=== PATIENT | male | born 1950 | race Caucasian/White ===

== ENCOUNTER 2020-08-31 06:42 | Outpatient (REF) | payer OTHER, SELFPAY ==
[2020-08-31 08:21] LABS: MANUAL DIFF FLAG NO
[2020-08-31 08:30] LABS: Basophils Absolute Auto 0.1 X10*3/uL (0.0-0.2); Basophils Percent Auto 0.7 % (0-2); Eosinophils Absolute Auto 0.2 X10*3/uL (0.0-0.4); Hematocrit 44.5 % (42-52); Hemoglobin 14.7 g/dl (14.0-18.0); Imm Gran Abs Auto 0.02 X10*3/uL (0.00-0.03); Imm Gran Pct Auto 0.3 % (0.0-0.4); Lymphocytes Absolute Auto 2.6 X10*3/uL (1.2-4.9); Lymphocytes Percent Auto 34.9 % (20-40); Mean Corpuscular Hemoglobin 31.1 pg (27.0-33.0); Mean Corpuscular Volume 94.3 fL (80-98); Mean Platelet Volume 9.5 fL (9.4-12.4); Monocytes Absolute Auto 0.6 X10*3/uL (0.1-1.2); Monocytes Percent Auto 8.5 % (2-11); Neutrophils Percent Auto 53.6 % (45-73); Platelet Count 262 X10*3/uL (160-400); Red Blood Count 4.72 X10*6/uL (4.60-5.80); Red Cell Distribution Width 11.9 % (11.0-16.0); White Blood Count 7.4 X10*3/uL (4.8-10.8)
[2020-08-31 09:03] LABS: Alanine Aminotransferase 14 U/L (0-40); Albumin Level 4.1 g/dL (3.5-5.0); Alkaline Phosphatase 68 U/L (39-117); Anion Gap 13 (12-20); Aspartate Amino Transferase 15 U/L (5-37); Bilirubin Total 0.2 mg/dL (0.0-1.0); Blood Urea Nitrogen 19 mg/dL (9-16); Calcium 9.6 mg/dL (8.4-10.2); Carbon Dioxide 24 mmol/L (22-29); Chloride 106 mmol/L (96-108); Cholesterol 166 mg/dL; Estimated Glomerular Filt Rate > 60; Glucose Fasting 162 mg/dL (60-99); HDL Cholesterol 36 mg/dL; LDL Cholesterol Calculated 103 mg/dl; Potassium 4.8 mmol/L (3.3-5.1); Sodium 138 mmol/L (135-145); Total Protein 6.8 g/dL (6.5-8.0); Triglycerides 136 mg/dL
[2020-08-31 09:11] LABS: Thyroid Stimulating Hormone 1.75 uIU/mL (0.32-4.0)
== END 2020-08-31 06:43 | disposition home or self-care (01) ==
LOC: HO.LAB 06:42
PROVIDERS: PCP Internal Medicine; Visit Provider Internal Medicine
DX: Z00.00 Encounter for general adult medical examination without abnormal findings (principal); E03.9 Hypothyroidism, unspecified; E11.9 Type 2 diabetes mellitus without complications
CPT/HCPCS: 36415; 80053; 80061; 84443; 85025

== ENCOUNTER 2021-02-15 11:40 | Outpatient (REF) | payer OTHER, SELFPAY ==
[2021-02-15 12:37] LABS: Estimated Average Glucose 131 mg/dL; Hemoglobin A1c % 6.2 %
[2021-02-15 12:43] LABS: Glucose Fasting 125 mg/dL (60-99)
[2021-02-21 02:26] LABS: Testosterone, Free 34.1 pg/mL (35.0-155.0); Testosterone, Total 242 ng/dL (250-1100)
== END 2021-02-15 11:41 | disposition home or self-care (01) ==
LOC: HO.LAB 11:40
PROVIDERS: PCP Internal Medicine; Visit Provider Internal Medicine
DX: E11.65 Type 2 diabetes mellitus with hyperglycemia (principal); N52.9 Male erectile dysfunction, unspecified
CPT/HCPCS: 36415; 82947; 83036; 84402; 84403

== ENCOUNTER 2023-02-05 08:44 | Outpatient (AMB) | payer MEDICARE, OTHER, SELFPAY ==
--- NOTE | 2023-02-05 08:45 | MHC.PC.OV ---
Vital Signs 02/05/23 08:46 Height 5 ft 6 in Weight 279 lb BMI 45.0 BP 130/70 Blood Pressure Location Lt brachial Position Sitting Pulse 92 Pulse Source Pulse Oximeter Pulse Oximetry (%) 97 Oxygen Delivery Method Room Air Intake Visit Reasons: Strained neck Intake Note: Patient is here today for strained neck radiates to neck and upper back area. OTC medication and exercises not helping Trolley Worker Required: No Audio Production Instructor: Not Required per policy Accompanied by: Self / Same As Patient Allergies No Known Allergies Allergy (Verified 02/05/23 08:46) Medication List - Last Reconciled 02/05/23 by Paolo Page MD epinephrine (EpiPen 2-Flakito) 0.3 mg (0.3 mL) IM Q4H PRN hydrochlorothiazide 12.5 mg PO DAILY lisinopril 20 mg PO DAILY meclizine 25 mg PO QID PRN simvastatin 20 mg PO BEDTIME tadalafil (Cialis) 20 mg PO DAILY PRN Tobacco use date assessed: 02/05/23 Fall risk assessment: No Falls in past year Last assessed Fall Risk: 02/05/23 Dental Screening Dental Screen Date: 02/05/23 Did you have a dental visit in the last 12 months?: Yes Did you have a dental problem in the last 6 months where you did not have access to dental care?: No Was dental information given to patient?: Patient has dentist HPI Strained neck HPI Details left and right neck pain and stiffness for a week; no injury [facility] Medical History (Updated 07/22/22 @ 13:45 by Paool Page MD) Gout Morbid obesity Hyperlipidemia Hypertension Surgical History History of knee replacement procedure of right knee Family History Mother No problems noted. Father No problems noted. Social History Housing: House Alcohol intake: current Alcohol intake frequency: holidays/special occasions only Patient Tobacco Use Status: Never used Tobacco e-Cigarette/Vaping Use: Never Used Second Hand Smoke Exposure: No service: No Current occupational status: retired Cognitive needs: No Hearing needs: Yes (hearing aide) Vision needs: Yes (Glasses) Questionnaire Thrive Questionnaire Date Thrive assessed: 07/22/22 KRISS-7 AMB Questionnaire KRISS-7 Date KRISS - 7 assessed: 07/22/22 Source: Developed by Drs. Luis E Hensley, Lori Meade, Vincent Gupta and colleagues, with an educational micheal from [employer]. Review of Systems Const Denies chills, Denies headache(s) and Denies weight loss ENT Denies headache(s) Card Denies chest pain, Denies syncope, Denies irregular heart rhythm and Denies dyspnea Resp Denies chest congestion, Denies cough and Denies dyspnea GI Denies abdominal pain, Denies change in stool character, Denies nausea and Denies vomiting Musc Denies deformity and Denies joint swelling Neuro Denies syncope and Denies headache(s) Physical exam (Primary Care) Vital Signs: Last Vital Signs Pulse 92 02/05/23 08:46 BP 130/70 02/05/23 08:46 Pulse Ox 97 02/05/23 08:46 Oxygen Delivery Method Room Air 02/05/23 08:46 BMI result Body Mass Index 45.0 Tobacco/Smoking Status: Tobacco use Status Tobacco use date assessed 02/05/23 02/05/23 08:52 Patient Tobacco Use Status Never used Tobacco 02/05/23 08:52 e-Cigarette/Vaping Use Never Used 02/05/23 08:52 Thrive Assessment: Date of Thrive Assessment Date Thrive assessed 07/22/22 02/05/23 08:52 Const General: cooperative, comfortable, no acute distress and alert Neck Neck: Yes no lymphadenopathy Thyroid: Thyroid normal Resp Effort & Inspection: normal respiratory effort Auscultation: clear to auscultation bilaterally Percussion: percussion normal Cardio Jugular venous distension: no JVD Palpation: normal PMI Rate: regular rate Rhythm: regular rhythm Heart sounds: S1 normal heart sound present and S2 normal heart sound present GI Inspection: Yes normal to inspection Palpation (GI): No hepatosplenomegaly present Skin General skin exam: no rashes or lesions noted Extrem General: Yes no clubbing, cyanosis or edema Office Procedures Flu Questionnaire Does the patient have a severe egg allergy?: No Does the patient have severe life threatening allergies?: No Does the patient have a fever or illness today?: No Has the patient ever had Guillain-Whitlash Syndrome?: No Has the patient ever had any past reaction to a flu shot?: No Immunizations flu vacc [id number] 6mos up(PF) 60 mcg(15 mcgx4)/0.5 mL IM syringe Performing Provider: Paolo Page MD Performing Location: [facility] Administered by: JOJO Rodney on 02/05/23 09:00 Dose Route Admin Location Dispensed Lot Number Expiration Date NDC Staff Genetic Counselor 0.5 mL IM Left Deltoid 0.5 mL [id number] 10/05/23 64086-085-74 [employer] VIS Given Date VIS Provided VIS Publication Date 02/05/23 Single Vaccine 20 Eligibility Eligibility Date Funding Source Not [facility] Eligible 02/05/23 Private Assessment and Plan Assessment & Plan (1) Neck pain: Code(s): M54.2 - Cervicalgia Plan: xr and rx Orders: Orders Influenza [id number] Immunization Today Z23 - Encounter for immunization XR cervical spine 2V Today M54.2 - Cervicalgia Medications: New naproxen (Naprosyn) 500 mg PO BID PRN 60 tabs 0RF pain flu vacc [id number] 6mos up(PF) 0.5 mL IM ONCE 0.5 mL 0RF Z23 - Encounter for immunization cyclobenzaprine 10 mg PO TID PRN 30 tabs 2RF muscle spasm Coding Level of Care Code Est Pt Level 3 (44380) Diagnoses Neck pain M54.2
[2023-02-05 08:46] VITALS: BP 130/70; PULSE 92; O2SAT 97; BMI 45.0
== END 2023-02-05 10:27 | disposition home or self-care (01) ==
PROVIDERS: PCP Internal Medicine; Visit Provider Internal Medicine
DX: Z23 Encounter for immunization (principal); M54.2 Cervicalgia
CPT/HCPCS: 90471; 90686; 99213

== ENCOUNTER 2023-02-05 09:09 | Outpatient (REF) | payer MEDICARE, OTHER, SELFPAY ==
--- NOTE | ~2023-02-05 | XR_ITS ---
EXAMINATION: XR CERVICAL SPINE CLINICAL INFORMATION: Cervicalgia COMPARISON: None available. TECHNIQUE: 7 views of the cervical spine FINDINGS: No acute visible fracture or dislocation. Grade 1 retrolisthesis of C5 on C6. Right neural foraminal narrowing greatest at C3-C4 and C4-C5. Multilevel degenerative changes with disc space narrowing and endplate sclerosis, osteophyte wrist and facet arthropathy. Visualized dens is intact. Lateral masses are symmetric. Vertebral body heights and disc spaces are maintained. Prevertebral soft tissue prominence greatest at C6, nonspecific. Posterior elements are intact. Paraspinal soft tissues are unremarkable. Visualized portions of the chest are unremarkable. XR/XR cervical spine 4V IMPRESSION: 1. No acute visible fracture or dislocation. 2. Grade 1 retrolisthesis of C5 on C6. 3. Right neural foraminal narrowing greatest at C3-C4 and C4-C5. 4. Multilevel degenerative changes. 5. Prevertebral soft tissue prominence greatest at C6, nonspecific.
== END 2023-02-05 09:10 | disposition home or self-care (01) ==
LOC: HO.XRAY 09:09
PROVIDERS: PCP Internal Medicine; Visit Provider Internal Medicine
DX: M54.2 Cervicalgia (principal)
CPT/HCPCS: 72050

== ENCOUNTER 2024-08-23 10:29 | Emergency (ER) | payer OTHER, SELFPAY ==
--- NOTE | ~2024-08-23 | CT_ITS ---
EXAMINATION: CT CERVICAL SPINE WITHOUT CONTRAST CLINICAL INFORMATION: Fall, head strike, neck pain. COMPARISON: None available. TECHNIQUE: Spiral CT imaging of the cervical spine performed in axial plane without contrast. Multiplanar reformatted images were constructed from the axial data set. This CT examination was performed using dose optimization techniques as appropriate, variously including the following: *Automated exposure control *Adjustment of mA and/or kV according to patient size (this includes techniques or standardized protocols for targeted exams where dose is matched to indication/reason for exam; i.e. extremities or head) *Use of iterative reconstruction technique FINDINGS: CORONAL ALIGNMENT: -Normal. SAGITTAL ALIGNMENT: -Minimal reversal of the normal lordosis. -No evidence of traumatic subluxation. -2 mm degenerative anterolisthesis C4 on C5, and 2 mm degenerative retrolisthesis C6 on C7. C1-C2 AND CRANIOCERVICAL JUNCTION: -Intact and aligned. There are degenerative changes of tingling into axial joint anteriorly. VERTEBRAL BODIES AND FACETS: -There are no fractures, compression deformities, traumatic subluxations, or suspicious bone lesions. -There are is normal facet alignment bilaterally with multilevel facet degenerative arthrosis. DISCS: -Moderate to severe disc degeneration present C5-6 and C6-7 with associated disc osteophytic spurs. -Moderate degeneration C3-4 and C4-5. CENTRAL CANAL: -No evidence of high-grade central canal narrowing or large disc herniation allowing for modality limitations. There is at least moderate canal stenosis present at C5-6 and possibly at C6-7. PREVERTEBRAL AND PARAVERTEBRAL SOFT TISSUES: -There are retropharyngeal courses of both carotid arteries. Moderate bilateral carotid bulb calcifications. -There is no prevertebral or paravertebral soft tissue edema or swelling. -There is an enlarged thyroid which extends to the sternal notch, with coarse calcifications bilaterally. No discrete dominant nodules seen by CT. LUNG APICES: -Imaged lung apices are clear allowing for motion artifact and expiratory state. CT/CT cervical spine wo IV con IMPRESSION: 1. No CT evidence of acute cervical spine fracture or injury. 2. Moderate degenerative spondylosis, most significant C5-6 and C6-7. Electronically signed by: Kvng Vallejo MD 08/23/2024 12:50 PM EDT
--- NOTE | ~2024-08-23 | CT_ITS ---
EXAMINATION: CT HEAD WITHOUT CONTRAST CLINICAL INFORMATION: Fall with posterior head strike. COMPARISON: None available. TECHNIQUE: Contiguous axial imaging was performed from the skull base to vertex without intravenous administration of contrast. This CT examination was performed using dose optimization techniques as appropriate, variously including the following: *Automated exposure control *Adjustment of mA and/or kV according to patient size (this includes techniques or standardized protocols for targeted exams where dose is matched to indication/reason for exam; i.e. extremities or head) *Use of iterative reconstruction technique FINDINGS: There is no evidence of intracranial hemorrhage or extra-axial fluid collection. There is no mass effect, or edema. No CT evidence of acute territorial infarct. Ventricles, sulci, and cisterns are normal in size and configuration for patient age. No hydrocephalus. No midline shift. Negative hyperdense MCA sign. Negative insular ribbon sign. Patchy periventricular and deep white matter hypoattenuation is consistent with mild small vessel ischemic changes. Normal pituitary. Mild atheromatous calcification of the bilateral carotid siphons and V4 segments vertebral arteries bilaterally. Globes and orbital contents image normally. There are bilateral lens replacements. No extracranial soft tissue abnormalities. The paranasal sinuses, mastoid air cells, and tympanic cavities are normally aerated. No suspicious bony abnormalities. There are no acute fractures evident. CT/CT head/brain wo IV con IMPRESSION: No acute intracranial abnormality. No fracture evident. Electronically signed by: Kvng Vallejo MD 08/23/2024 12:45 PM EDT
[2024-08-23 10:54] VITALS: BP 112/54; PULSE 77; RESP 18; TEMP 36.2; O2SAT 100; BMI 45.7
--- NOTE | 2024-08-23 11:19 | ED_ITS ---
HPI - Fall General Chief Complaint: Fall Stated Complaint: head inj Time Seen by Provider: 08/23/24 11:19 Source: patient and family () Mode of arrival: ambulatory Limitations: no limitations History of Present Illness ED Provider: KARO FIERRO PA-C HPI Narrative: 74-year-old male with pmhx significant for HTN, HLD, vertigo, gout presents to the ED today with his for evaluation s/p fall with posterior head strike 4 days ago. Patient states that he suffers from vertigo. He had a brief episode of room spinning sensation on Friday (consistent with his typical vertigo), causing him to fall backwards. He reports striking the back of his head on a wall. He did not lose consciousness. He is not on anticoagulation. Reports taking meclizine at that time with improvement. Since head strike, he reports constant headache and midline neck pain x 4 days. He has not trialed any dywu-neo-sceamzi analgesics for this. Also endorses nausea without vomiting, fatigue. No slurred speech. Placed in cervical collar on arrival d/t complaints of neck pain. Related Data Previous Rx's ?Medication ?Instructions ?Recorded epinephrine 0.3 mg/0.3 mL 0.3 mg (0.3 mL) IM Q4H PRN 08/02/22 injection, auto-injector (EpiPen anaphylaxis #2 ea 2-Flakito) cyclobenzaprine 10 mg tablet 10 mg PO TID PRN muscle spasm #30 02/05/23 tabs naproxen 500 mg tablet (Naprosyn) 500 mg PO BID PRN pain #60 tabs 02/05/23 meclizine 25 mg tablet 25 mg PO QID PRN dizziness #30 tabs 02/25/23 tadalafil 20 mg tablet (Cialis) 20 mg PO DAILY PRN sexual activity 05/19/23 #30 tabs hydrochlorothiazide 12.5 mg capsule 12.5 mg PO DAILY #90 caps 08/15/23 lisinopril 20 mg tablet 20 mg PO DAILY #90 tabs 08/15/23 simvastatin 20 mg tablet 20 mg PO BEDTIME #90 tabs 08/15/23 ondansetron 4 mg disintegrating 4 mg PO DAILY PRN nausea and 08/23/24 tablet vomiting 5 days #10 tabs Allergies Allergy/AdvReac Type Severity Reaction Status Date / Time shellfish derived [shellfish] Allergy Anaphylaxis Verified 08/23/24 11:06 Review of Systems Review of Systems: Yes all other systems are reviewed and are negative [facility] Past Medical History Attestation statement: The following information was validated with the patient. Source: old records reviewed and nursing notes reviewed Medical History Gout Morbid obesity Hyperlipidemia Hypertension Surgical History History of knee replacement procedure of right knee Family History Family History Mother No problems noted. Father No problems noted. Social History Social History Housing: House Alcohol intake: current Alcohol intake frequency: holidays/special occasions only Patient Tobacco Use Status: Never used Tobacco e-Cigarette/Vaping Use: Never Used Second Hand Smoke Exposure: No service: No Current occupational status: retired Cognitive needs: No Hearing needs: Yes (hearing aide) Vision needs: Yes (Glasses) Physical Exam Vital Signs: Vital Signs: Last Vital Signs Temp 98.0 F 08/23/24 13:09 Pulse 72 08/23/24 13:09 Resp 18 08/23/24 13:09 BP 140/67 H 08/23/24 13:09 Pulse Ox 98 08/23/24 13:09 O2 Del Method Room Air 08/23/24 13:09 BMI result Body Mass Index 45.7 patient is hypertensive, vitals are otherwise wnl General: Well appearing, in no acute distress. Skin: Warm, dry, intact. No rashes or lesions. Head: Normocephalic, atraumatic. No raccoon eyes, boyle sign. No palpable skull fracture or hematoma. EENT: Hearing is intact b/l. Conjunctiva clear. Sclera is anicteric. PERRLA. EOM intact. Moist mucous membranes.? Neck: exam done on removal of C-collar. No midline cervical spinous tenderness or step-off deformity. Full ROM intact to C-spine. Cardiac: Chest wall symmetric. RRR Lungs: Normal respiratory effort without accessory muscle use. CTA bilaterally Abdomen: Soft, non-tender, non-distended. No rebound tenderness or guarding. Positive BS x4. Back: No midline spinous or paraspinal tenderness. No step off deformity. Ext: Upper and lower extremities atraumatic, without tenderness, deformity, swelling or erythema Neuro: AOx3. Normal speech. NIH 0. cerebellum intact - normal finger to nose, heel to griffith, rapid mvmts UEs. Ambulating with steady gait. NIH Stroke Scale Internal: Initial- Upon Arrival Time: 11:32 Level of Consciousness: Alert Level of Consciousness Questions: Answers both questions correctly Level of Consciousness Commands: Performs both tasks correctly Best Gaze: Normal Visual: No visual loss Facial Palsy: Normal Motor Arm (Right): No drift Motor Arm (Left): No drift Motor Leg (Right): No drift Motor Leg (Left): No drift Limb Ataxia: Absent Sensory: Normal Best Language: No aphasia Dysarthia: Normal Extinction and Inattention: No abnormality Score: 0 Course Course Course Narrative: CT head/brain without intracranial bleed or skull fracture. CT cervical spine without fracture or subluxation. There is moderate degenerative spondylosis most significant at C5/6 and C6/7. > c collar removed. symptoms consisted w/ concussion. educated on concussion protocol- written education provided. steve sent to pharmacy for nausea. advised tylenol/motrin. Patient has remained stable throughout ED visit today. Discussed worrisome signs and symptoms and when to return to the ED. All questions answered at this time. Patient is agreeable with disposition and stable for discharge. Medications Administered Discontinued Medications Generic Name Dose Route Start Last Admin Trade Name Marty PRN Reason Stop Dose Admin Acetaminophen 975 mg 08/23/24 11:24 08/23/24 11:34 Acetaminophen 325 Mg Tablet PO 08/23/24 11:25 975 mg ONCE ONE Administration Ondansetron HCl 4 mg 08/23/24 11:25 08/23/24 11:34 Ondansetron Odt 4 Mg Tab.Rapdis TRANSLINGU 08/23/24 11:26 4 mg ONCE ONE Administration Medical Decision Making Medical Decision Making [facility] Narrative: 74-year-old male with past medical history significant for HTN, HLD, vertigo, gout presents to the ED today with his for evaluation s/p fall with head strike 4 days ago. Mildly hypertensive, vitals are otherwise WNL. He is nontoxic appearing in no acute distress. His exam is nonfocal. Head is normocephalic, atraumatic without palpable hematoma or skull fracture. No raccoon eyes or boyle sign. EOMs are intact without entrapment. There is no midline cervical spinous tenderness or step-off deformity. Full ROM intact to C-spine. Differential diagnosis includes contusion, concussion, headache versus migraine, ICH, skull fracture, closed head injury, cervical fracture, cervical strain, cervical spasm Plan for imaging, pain control, and re-evalutation. Differential Diagnosis Differential Diagnoses: The differential diagnosis associated with the presentation includes As above Admission/Observation Not indicated Independent Interpretation I performed an independent interpretation of an: CT Scan Interpretation: CT head/brain without bleed or skull fracture CT cervical spine without fracture or subluxation Radiology Impression Discussion of test interpretation with radiology: I have reviewed the radiologist's reading. Radiologist Impression: Procedure(s): CT cervical spine wo IV con Accession Number(s): [id number] cc: Adela Dye MD; Karo Fierro~ Report Number: [id number]: Total DLP = 730.00 mGy-cm EXAMINATION: CT CERVICAL SPINE WITHOUT CONTRAST CLINICAL INFORMATION: Fall, head strike, neck pain. COMPARISON: None available. TECHNIQUE: Spiral CT imaging of the cervical spine performed in axial plane without contrast. Multiplanar reformatted images were constructed from the axial data set. This CT examination was performed using dose optimization techniques as appropriate, variously including the following: *Automated exposure control *Adjustment of mA and/or kV according to patient size (this includes techniques or standardized protocols for targeted exams where dose is matched to indication/reason for exam; i.e. extremities or head) *Use of iterative reconstruction technique FINDINGS: CORONAL ALIGNMENT: -Normal. SAGITTAL ALIGNMENT: -Minimal reversal of the normal lordosis. -No evidence of traumatic subluxation. -2 mm degenerative anterolisthesis C4 on C5, and 2 mm degenerative retrolisthesis C6 on C7. C1-C2 AND CRANIOCERVICAL JUNCTION: -Intact and aligned. There are degenerative changes of tingling into axial joint anteriorly. VERTEBRAL BODIES AND FACETS: -There are no fractures, compression deformities, traumatic subluxations, or suspicious bone lesions. -There are is normal facet alignment bilaterally with multilevel facet degenerative arthrosis. DISCS: -Moderate to severe disc degeneration present C5-6 and C6-7 with associated disc osteophytic spurs. -Moderate degeneration C3-4 and C4-5. CENTRAL CANAL: -No evidence of high-grade central canal narrowing or large disc herniation allowing for modality limitations. There is at least moderate canal stenosis present at C5-6 and possibly at C6-7. PREVERTEBRAL AND PARAVERTEBRAL SOFT TISSUES: -There are retropharyngeal courses of both carotid arteries. Moderate bilateral carotid bulb calcifications. -There is no prevertebral or paravertebral soft tissue edema or swelling. -There is an enlarged thyroid which extends to the sternal notch, with coarse calcifications bilaterally. No discrete dominant nodules seen by CT. LUNG APICES: -Imaged lung apices are clear allowing for motion artifact and expiratory state. CT/CT cervical spine wo IV con IMPRESSION: 1. No CT evidence of acute cervical spine fracture or injury. 2. Moderate degenerative spondylosis, most significant C5-6 and C6-7. Electronically signed by: Kvng Vallejo MD 08/23/2024 12:50 PM EDT RP Procedure(s): CT head/brain wo IV con Accession Number(s): [id number] cc: Adela Dye MD; Karo Fierro~ Report Number: [id number]: Total DLP = 801.00 mGy-cm EXAMINATION: CT HEAD WITHOUT CONTRAST CLINICAL INFORMATION: Fall with posterior head strike. COMPARISON: None available. TECHNIQUE: Contiguous axial imaging was performed from the skull base to vertex without intravenous administration of contrast. This CT examination was performed using dose optimization techniques as appropriate, variously including the following: *Automated exposure control *Adjustment of mA and/or kV according to patient size (this includes techniques or standardized protocols for targeted exams where dose is matched to indication/reason for exam; i.e. extremities or head) *Use of iterative reconstruction technique FINDINGS: There is no evidence of intracranial hemorrhage or extra-axial fluid collection. There is no mass effect, or edema. No CT evidence of acute territorial infarct. Ventricles, sulci, and cisterns are normal in size and configuration for patient age. No hydrocephalus. No midline shift. Negative hyperdense MCA sign. Negative insular ribbon sign. Patchy periventricular and deep white matter hypoattenuation is consistent with mild small vessel ischemic changes. Normal pituitary. Mild atheromatous calcification of the bilateral carotid siphons and V4 segments vertebral arteries bilaterally. Globes and orbital contents image normally. There are bilateral lens replacements. No extracranial soft tissue abnormalities. The paranasal sinuses, mastoid air cells, and tympanic cavities are normally aerated. No suspicious bony abnormalities. There are no acute fractures evident. CT/CT head/brain wo IV con IMPRESSION: No acute intracranial abnormality. No fracture evident. Electronically signed by: Kvng Vallejo MD 08/23/2024 12:45 PM EDT RP Independent Historian Clinical information obtained from an independent historian. History obtained from or confirmed by: Spouse () Prescription Management I considered prescription management with: Other (zofran) Social Determinants Patient?s care significantly limited by Social Determinants of Health including: Other Social Determinant of Health Critical Care Time Critical Care Time Critical Care Time: No Discharge Plan Discharge Clinical Impression: Closed head injury, Concussion Patient Disposition: Home, Self-Care Instructions: Concussion (ED), Head Injury (ED) Additional Instructions: You were evaluated in the ED today following a head injury. The CT scan of your head does not demonstrate intracranial bleed or skull fracture. You have a concussion. See home care instructions regarding concussion protocol. Treatment for this is brain rest. Please limit screen time (i.e phone, tv, etc.) Make sure you are staying hydrated. Lay down to relax in a dark quiet room. Avoid sports until cleared by your primary doctor. Zofran has been sent to your pharmacy for you to take as needed for nausea. I recommend you take 600mg ibuprofen every 6 hours or tylenol 650mg every 6 hours as needed for pain. If needed, you can alternate these medications so that you take one medication every 3 hours. For example, at noon take ibuprofen, then at 3pm take tylenol, then at 6pm take ibuprofen Follow up with your primary doctor as needed. As discussed, return to the ED with any new or worsening symptoms such as intractable headache, vomiting, lethargy, worsening confusion, etc. In the case of an emergency call 911. Prescriptions: New ondansetron 4 mg tablet,disintegrating 4 mg PO DAILY PRN (Reason: nausea and vomiting) 5 Days Qty: 10 0RF No Action epinephrine [EpiPen 2-Flakito] 0.3 mg/0.3 mL auto-injector 0.3 mg IM Q4H PRN (Reason: anaphylaxis) Qty: 2 0RF tadalafil [Cialis] 20 mg tablet 20 mg PO DAILY PRN (Reason: sexual activity) Qty: 30 8RF Rx Instructions: administer approximately 30min before sexual activity; do not use more than 1 dose per 24hrs lisinopril 20 mg tablet 20 mg PO DAILY Qty: 90 8RF hydrochlorothiazide 12.5 mg capsule 12.5 mg PO DAILY Qty: 90 8RF simvastatin 20 mg tablet 20 mg PO BEDTIME Qty: 90 8RF cyclobenzaprine 10 mg tablet 10 mg PO TID PRN (Reason: muscle spasm) Qty: 30 2RF naproxen [Naprosyn] 500 mg tablet 500 mg PO BID PRN (Reason: pain) Qty: 60 0RF meclizine 25 mg tablet 25 mg PO QID PRN (Reason: dizziness) Qty: 30 2RF Referrals: Adela Dye MD [Primary Care Provider] - Discharge Date/Time: 08/23/24 13:24 Print Language: Slovenian
[2024-08-23] MEDS: Acetaminophen 325 MG TABLET 975 MG PO (11:34)
[2024-08-23] MEDS: Ondansetron ODT 4 MG TAB.RAPDIS TRANSLINGU (11:34)
--- OUTSIDE RECORDS SUMMARY | 2024-08-23 11:59 | XMS_ITS | Patient Health Record ---
[facility] Address [address] [address] Care Team Providers Care Engineering Assistant Name Role Phone Jordanrodolfovicente Adela Primary Care Provider Farheen Cordova Unavailable [phone] Vu Gibson Unavailable [phone] Allergies Allergen (clinical drug ingredient) Drug/Non Drug Allergy documented on EMR Reaction Allergy Type Onset Date Status Shrimp Flavor itching, breathing issues Drug Allergy Active Shellfish (FN) Shellfish-derived Products itching, breathing issues Drug Allergy Active Results Component Value Reference Range Notes HEMOGLOBIN A1C (GLYCOHEMOGLO BIN) Reviewed date:01/07/2024 12:20:03 PM Interpretation: Performing Lab: Notes/Report: TOTAL HEMOGLOBIN (HGBA1C) 7.1 Reason For Referral No Information Medications Medication SIG (Take, Route, Frequency, Duration) Notes Start Date End Date Status Tadalafil 20 MG 1 tablet as needed Orally Once a day Active Night Splint AFO - L1930 as directed Active Lisinopril 20 MG 1 tablet Orally Once a day Active Simvastatin 20 MG 1 tablet in the even ing Orally Once a day Active hydroCHLOROthiazide 12.5 MG 1 capsule in the morning Orally Once a day Active Immunizations Vaccine Route Administration Date Status Comme nts Influenza Unknown 01/04/2022 Administered Influenza Unknown 12/06/2022 Administered Social History Tobacco Use: Social History Observation Description Date Details (start date - stop date) Former Smoker NA - NA Tobacco Use/Smoking Question Answer Notes Are you a: former smoker Additional Findings: Tobacco Non-User Current no n-smoker Alcohol Screen Question Answer Notes Did you have a drink contain ing alcohol in the past year? Yes How often did you have a dri nk containing alcohol in the past year? 2 to 4 times a month (2 points) Points 2 Interpretation Negative Tobacco use other than smoking: Question Answer Notes Are you an other tobacco user? No Problems Problem Type SNOMED Code ICD Code Onset Dates Problem Status W/U Status Risk Notes Problem Plantar fascial fibromatosis (02633120) Plantar fascial fibromatosis (M72.2) Active confirmed Problem Polyneuropathy due to diabetes mellitus type I (553565175) Type 1 diabetes mellitus with diabetic polyneuropathy (E10.42) Active confirmed Problem Type 2 diabetes mellitus with diabetic polyneuropathy (E11.42) Active confirmed Vital Signs Blood pressure diastolic 78 mm Hg 04/01/2024 Height 5ft5in in 04/01/2024 Blood pressure systolic 118 mm Hg 04/01/2024 Weight 280 lbs 04/01/2024 BMI 46.59 kg/m2 04/01/2024 Procedures Procedure Date Ordered Date Performed Result Body Sit e 50547-UMEGANM NAIL, 6 OR MORE 04/01/2024 N/A 91001-UGZC SKIN LESIONS, OVER 4 04/01/2024 N/A Encounters Encounter Location Date Provider Diagnosis [facility] [address] 10/15/2023 Vu Gibson Plantar fascial fibromatosis M72.2 ; Pain in left foot M79.672 ; Pain in right foot M79.671 ; Calcaneal spur, left foot M77.32 ; Calcaneal spur, right foot M77.31 ; Tinea unguium B35.1 ; Pain in right toe(s) M79.674 ; Pain in left toe(s) M79.675 and Ingrowing nail L60.0 [facility] [address] [address] 01/07/2024 Vu Gibson Plantar fascial fibromatosis M72.2 ; Pain in left foot M79.672 ; Pain in right foot M79.671 ; Calcaneal spur, left foot M77.32 ; Calcaneal spur, right foot M77.31 ; Tinea unguium B35.1 ; Pain in right toe(s) M79.674 ; Pain in left toe(s) M79.675 and Ingrowing nail L60.[address] [address] 04/01/2024 Farheen Caballero Type 2 diabetes mellitus with diabetic polyneuropathy E11.42 ; Tinea unguium B35.1 and Plantar fascial fibromatosis M72.[address] [address] 07/28/2024 Farheen Caballero Assessments Encounter Date Diagnosis (ICD Code) Assessment Notes Treatment Notes Treatment Clinical Notes Section Notes 10/15/2023 Plantar fascial fibromatosis (ICD-10 - M72.2) Patient Educated with: HEEL CORD STRETCHES.pdf (HEEL CORD STRETCHES.pdf ) Patient Educated with: RICE THERAPY.pdf (RICE THERAPY.pdf) 01/07/2024 Plantar fascial fibromatosis (ICD-10 - M72.2) Patient Educated with: HEEL CORD STRETCHES.pdf (HEEL CORD STRETCHES.pdf ) Patient Educated with: RICE THERAPY.pdf (RICE THERAPY.pdf) 04/01/2024 Type 2 diabetes mellitus with diabetic polyneuropathy (ICD-10 - E11.42) 04/01/2024 Tinea unguium (ICD-10 - B35.1) 04/01/2024 Plantar fascial fibromatosis (ICD-10 - M72.2) Patient Educated with: HEEL CORD STRETCHES.pdf (HEEL CORD STRETCHES.pdf ) Patient Educated with: RICE THERAPY.pdf (RICE THERAPY.pdf) 01/07/2024 Pain in left foot (ICD-10 - M79.672) 10/15/2023 Pain in left foot (ICD-10 - M79.672) 10/15/2023 Pain in right foot (ICD-10 - M79.671) 01/07/2024 Pain in right foot (ICD-10 - M79.671) 01/07/2024 Calcaneal spur, left foot (ICD-10 - M77.32) 10/15/2023 Calcaneal spur, left foot (ICD-10 - M77.32) 10/15/2023 Calcaneal spur, right foot (ICD-10 - M77.31) 01/07/2024 Calcaneal spur, right foot (ICD-10 - M77.31) 01/07/2024 Tinea unguium (ICD-10 - B35.1) 10/15/2023 Tinea unguium (ICD-10 - B35.1) 10/15/2023 Pain in right toe(s) (ICD-10 - M79.674) 01/07/2024 Pain in right toe(s) (ICD-10 - M79.674) 01/07/2024 Pain in left toe(s) (ICD-10 - M79.675) 10/15/2023 Pain in left toe(s) (ICD-10 - M79.675) 10/15/2023 Ingrowing nail (ICD-10 - L60.0) 01/07/2024 Ingrowing nail (ICD-10 - L60.0) Plan Of Treatment Pending Test Test Name Order Date X ray : Foot, left 3V 11/14/2022 X ray : Foot, right 3V 11/14/2022 43019-IFHFXIJ NAIL, 6 OR MORE 04/01/2024 57653-PJUX SKIN LESIONS, OVER 4 04/01/20 24 Next Appt Details Provider Name:Farheen Lowe china, 09/20/2024 02:30:00 PM, [address] [facility], [place], [address], Insurance Providers Payer Name Payer Address Payer Phone Subscriber Number Group Number Insured Name Patient Relationship to Insured Coverage Start Date Coverage End Date Medicare National [employer] [address] [facility] [place] [address] [id number] Luis E Anderson Self - patient is the insured [employer] ([employer]) [address] [place] [address] [id number] Luis E Anderson Self - patient is the insured Medical (General) History Medical History History ICD Code Arthritis Back,Hip,and Knee pain CAD (Cholesterol) Broken bones covid-19 Diabetes mellitus Gout High blood pressure chronic sinusitis Measles Chicken pox Bone implants/screws Surgical History Surgery Date(Month/Year) knee replacement- right 06/03/22 cataract surgery 01/05/2024
--- OUTSIDE RECORDS SUMMARY | 2024-08-23 11:59 | XMS_ITS ---
Author Organization [facility] Address [address] [place] [address] Care Team Providers Care Grain Elevator Motor Starter Name Role Phone Adela Dye Primary Care Provider Farheen Cordova [phone] REASON FOR VISIT rs from 07/29/24 Encounters Encounter Location Date Provider Diagnosis [address] [address] 07/28/2024 Farheen Caballero Plan Of Treatment Next Appt Details Provider Name:Farheen atkinson, 09/20/2024 02:30:00 PM, [address] [place], [address], Progress Notes * Luis E ANDERSON JrDOB:1950 (74 yo M)Acc No.[id number]:07/28/2024 Patient:?Luis E ANDERSON Jr :1950???Age:74 Y???Sex:Male Address:[address] [place] [address] [place], [address] * true * Date:? Generated for Printi ng/Faxing/eTransmitting on:?08/23/2024 11:58 AM EDT
--- OUTSIDE RECORDS SUMMARY | 2024-08-23 11:59 | XMS_ITS ---
Author Organization [facility] Address [address] [place] [address] Care Team Providers Care Crew Attendant Name Role Phone Adela Dye Primary Care Provider Farheen Cordova [phone] Allergies Allergen (clinical drug ingredient) Drug/Non Drug Allergy documented on EMR Reaction Allergy Type Onset Date Status Shrimp Flavor itching, breathing issues Drug Allergy Active Shellfish (FN) Shellfish-derived Products itching, breathing issues Drug Allergy Active Medications Medication SIG (Take, Route, Frequency, Duration) [...] the morning Orally Once a day Active Encounters Encounter Location Date Provider Diagnosis [address] [address] 07/29/2024 Farheen Caballero Plan Of Treatment Next Appt Details Provider Name:Farheen atkinson, 09/20/2024 02:30:00 PM, [address] [place] [address], [address], Progress Notes * Luis E ANDERSON JrDOB:1950 (74 yo M)Acc No.[id number]:07/29/2024 Progress Note Patient:?Luis E ANDERSON Jr Provider:?Farheen Caballero DPM :1950???Age:74 Y???Sex:Male Martin e:07/29/2024 Address:[address] [place], [place] Pcp:Adela Dye Subjective: * Chief Complaints: * ??? * Medical History:?Arthritis, Back,Hip,and Knee pain, CAD (Cholesterol), Broken bones, Covid-19, Diabetes mellitus, Gout, High blood pressure, Chronic sinusitis, Measles, Chicken pox, Bone implants/screws. * Medications:?Taking hydroCHL OROthiazide 12.5 MG Capsule 1 capsule in the morning Orally Once a day , Taking Lisinopril 20 MG Tablet 1 tablet Orally Once a day , Taking Simvastatin 20 MG Tablet 1 tablet in the evening Orally Once a day , Taking Tadalafil 20 MG Tablet 1 tablet as needed Orally Once a day , Taking Night Splint AFO - L1930 as directed * Allergies:?Shrimp Flavor: it tesfaye, breathing issues - Allergy, Shellfish-derived Products: itching, breathing issues - Allergy. Objective: * Vitals:? Assessment: Plan: * Treatment: * Images: * The named appointment provid er may or may not be the originator of this progress note, and it is not deemed complete until electronically signed by the appointment provider. Sign off status: Pending * Provider:?Farheen Caballero DPM Date:?0 07/29/2024 Generated for Geoff contreras/Angus/Cyndiitting on:?08/23/2024 11:58 AM EDT
[2024-08-23 13:09] VITALS: BP 140/67; PULSE 72; RESP 18; TEMP 36.7; O2SAT 98
== END 2024-08-23 13:24 | disposition home or self-care (01) ==
PROVIDERS: Emergency Provider Emergency Medicine; PCP Internal Medicine
DX: S06.0X0A Concussion without loss of consciousness, initial encounter (principal); S09.8XXA Other specified injuries of head, initial encounter; W18.39XA Other fall on same level, initial encounter; R42 Dizziness and giddiness; R51.9 Headache, unspecified; R29.700 NIHSS score 0; I10 Essential (primary) hypertension; E78.5 Hyperlipidemia, unspecified; E66.9 Obesity, unspecified; Z68.42 Body mass index [BMI] 45.0-49.9, adult; Y93.89 Activity, other specified; Y92.019 Unspecified place in single-family (private) house as the place of occurrence of the external cause; Y99.9 Unspecified external cause status
CPT/HCPCS: 70450; 72125; 99283; 99284

== ENCOUNTER → 2024-08-23 11:24 | Outpatient (BNV) | payer MEDICARE, SELFPAY | PROVIDERS: Emergency Provider Emergency Medicine; PCP Internal Medicine; Visit Provider Radiology Diagnostic Radiology | DX: M47.812 Spondylosis without myelopathy or radiculopathy, cervical region (principal); S09.90XA Unspecified injury of head, initial encounter | CPT/HCPCS: 70450; 72125 ==